=== PATIENT | female | born 1995 | race Caucasian/White ===

== ENCOUNTER 2019-03-29 12:18 | Inpatient (IN) | payer BC ==
[2019-03-29 16:35] VITALS: BMI 38.4
--- NOTE | 2019-03-29 17:24 | PN ---
"Teaching Attending Note Name of Resident: Santi Ram ATTENDING PHYSICIAN STATEMENT I saw and evaluated the patient. I reviewed the resident's note and discussed the case with the resident. I agree with the resident's findings and plan as documented. SUBJECTIVE: 24 y.o, female w/ opioid dependence x 4-6 mo , reports started meds from dentist then recreationally , started using heroin 2 mo ago , current daily use 3 bags via inhalation , latest use yesterday , prior xanax use with w/d seizures 1 year ago and 1 mo ago , denies recent use of benzodiazepines. PMhx : PCOS Surgeries: tonsillectomy (16 yo) Work: assistant athletic trainer SHX : father with alcohol use, Lives with family, legal - incarcerated in February for non-drug related crime, has court next month. OBJECTIVE: This report was requested by: Amanda Wolf | Reference #: [id number] Others' Prescriptions Patient Name: Collette Nunez Date: 1995 Address: [address] [place] [id number] Sex: Female Rx Written Rx Dispensed Drug Quantity Days Supply Prescriber Name 02/09/2019 02/10/2019 chlordiazepoxide 25 mg capsule 18 3 Selwyn Rodney Patient Name: October Evonne Date: 1995 Address: [address] [place] [id number] Sex: Female Rx Written Rx Dispensed Drug Quantity Days Supply Prescriber Name 01/18/2019 01/18/2019 alprazolam 0.5 mg tablet 10 10 Juanita Hogan J, MD 12/18/2018 12/18/2018 hydrocodone-acetaminophen 5-300 mg tablet 12 4 Shabbir Strange ASSESSMENT AND PLAN: Opioid dependence - Methadone taper and pt to consider outpt f/up for MAT . Benzodiazepine abuse - Valium taper"
--- NOTE | 2019-03-29 17:42 | HP ---
COWS - Scale Resting Pulse: 1= [place] 81-100 Sweatin=Flushed/Facial Moisture Restless Observation: 0= Sits Still Pupil Size: 2= Moderately Dilated Bone or Joint Aches: 1= Mild Discomfort Runny Nose/ Eye Tearin= Constantly Teary/Runny GI Upset > 30mins: 3= Vomiting/Diarrhea Tremor Observation: 2= Slight Tremor Visible Yawning Observation: 0= None Anxiety or Irritability: 0= None Goose Flesh Skin: 0=Smooth Skin (15 10 5) COWS Score: 15 CIWA Score - Admission Criteria OAS Guidelines: Admission for Medically Managed Detox: Requires at least one of the followin. CIWA greater than 12 2. Seizures within the past 24 hours 3. Delirium tremens within the past 24 hours 4. Hallucinations within the past 24 hours 5. Acute intervention needed for co occurring medical disorder 6. Acute intervention needed for co occurring psychiatric disorder 7. Severe withdrawal that cannot be handled at a lower level of care (continued vomiting, continued diarrhea, abnormal vital signs) requiring intravenous medication and/or fluids 8. Admission ROS [facility] Chief Complaint: vicodin detox Allergies/Adverse Reactions: Allergies Allergy/AdvReac Type Severity Reaction Status Date / Time No Known Allergies Allergy Verified 03/29/19 16:24 History of Present Illness: 24 year old female with a history of PCOS presents for detox from opiates. Uses vicodin for 6 months since a dental operation (4-5 pills per day). Also uses heroin 3 bag per day (snorts). Has had withdrawal seizures from stopping xanax ( 1 year ago), and then again 1 month ago due to weaning off of xanax, vicodin and heroin. Vicodin: 4-5 pills per day, last used yesterday since 6 months ago Heroin: started 3 months ago, last used yesterday, 3 bags per day. Snorts, never injected Xanax: does not currently use, but has her heroin cut with unknown substances Allergies: none Surgeries: tonsillectomy (16yo) Work: dog breeder Family History of Substance Use: father with alcohol use Lives with family - Ebola screening Have you traveled outside of the country in the last 21 days: No Have you had contact with anyone from an Ebola affected area: No - Review of Systems Constitutional: No Symptoms Reported, Diaphoresis, Loss of Appetite, Unintentional Wgt. Loss EENT: reports: Nose Congestion Respiratory: reports: No Symptoms reported Cardiac: reports: Lightheadedness, Palpitations GI: reports: Nausea, Vomiting : reports: No Symptoms Reported Musculoskeletal: reports: No Symptoms Reported Integumentary: reports: No Symptoms Reported Neuro: reports: Headache, Tingling Endocrine: reports: No Symptoms Reported Hematology: reports: No Symptoms Reported Psychiatric: reports: Judgement Intact, Mood/Affect Appropiate, Orientated x3, Anxious Patient History - Smoking Cessation Smoking history: Current some day smoker Have you smoked in the past 12 months: Yes Initiated information on smoking cessation: Yes 'Breaking Loose' booklet given: 03/29/19 - Substances abused Oxycontin Substance route: Oral Frequency: Daily Amount used: 5 or 6 pills Age of first use: 24 Date of last use: 03/29/19 Other Other (specify): Vicodan Substance route: Oral Frequency: 1-3 times last 30 days Amount used: ' not sure' Age of first use: 24 Date of last use: 03/18/19 Heroin Substance route: Inhalation Frequency: 3-6 times per week Amount used: 20 dollars Age of first use: 24 Date of last use: 03/28/19 Admission Physical Exam BHS - Vital Signs Vital Signs: Vital Signs - 24 hr 03/29/19 16:26 Temperature 97.7 F Pulse Rate 82 Respiratory 16 Rate Blood Pressure 156/88 - Physical General Appearance: Yes: No Apparent Distress, Nourished, Appropriately Dressed HEENTM: Yes: EOMI, Normal ENT Inspection, Normocephalic, Normal Voice, STEPHANI, Pharynx Normal, Tm's normal Respiratory: Yes: Chest Non-Tender, Lungs Clear, Normal Breath Sounds, No Respiratory Distress, No Accessory Muscle Use Neck: Yes: No masses,lesions,Nodules, Trachea in good position Breast: Yes: Within Normal Limits, Axillae without masses Cardiology: Yes: Regular Rhythm, Regular Rate Abdominal: Yes: Normal Bowel Sounds, Non Tender, Flat, Soft Genitourinary: Yes: Within Normal Limits Back: Yes: Within Normal Limits, Normal Inspection Musculoskeletal: Yes: full range of Motion Extremities: Yes: Normal Capillary Refill, Normal Inspection, Normal Range of Motion, Non-Tender Neurological: Yes: terminal press operator II-XII NML intact, Fully Oriented, Alert, Motor Strength 5/5, Normal Mood/Affect Integumentary: Yes: Normal Color, Dry, Warm - Diagnostic (1) Opioid dependence with withdrawal Current Visit: Yes Status: Acute (2) Heroin abuse Current Visit: Yes Status: Acute Cleared for Admission [facility] - Detox or Rehab [facility] Level of Care: Medically Managed Breathalyzer - Breathalyzer Breathalyzer: 0 Urine Drug Screen - Test Device Lot number: [id number] Expiration date: 12/01/20 - Control Is test valid?: Yes - Results Drug screen NEGATIVE: No Urine drug screen results: THC-Marijuana, FEN-Fentanyl, MOP-Opiates, OXY- Oxycodone, BZO-Benzodiazepines Inpatient Rehab Admission - Rehab Decision to Admit Inpatient rehab admission?: No
[2019-03-29] MEDS ORDERED: cloNIDine HCL 0.1 MG TABLET PO PRN (17:44)
[2019-03-29] MEDS ORDERED: BISMUTH SUBSALICYLATE 524 MG/30 ML UD PO PRN (17:44)
[2019-03-29] MEDS ORDERED: MAGNESIUM HYDROX 2400MG/30ML ORAL SUSPENSION 30 ML CUP PO PRN (17:44)
[2019-03-29] MEDS ORDERED: IBUPROFEN 400 MG TABLET (FP) PO PRN (17:44)
[2019-03-29] MEDS ORDERED: MAGNESIUM CITRATE 300 ML BOTTLE PO PRN (17:44)
[2019-03-29] MEDS ORDERED: ACETAMINOPHEN 325 MG TABLET (FP) PO PRN ×2 (17:44)
[2019-03-29] MEDS ORDERED: MENTHOL/PHENOL 1 EACH UD MM PRN (17:44)
[2019-03-29] MEDS ORDERED: MAG HYDROX/AL HYDROX/SIMETH 30 ML UNIT-DOSE CUP PO PRN (17:44)
[2019-03-29] MEDS ORDERED: METHADONE HCL 5 MG TABLET (FOR DETOX USE ONLY) PO ONE (18:00)
[2019-03-29] MEDS ORDERED: diazePAM 5 MG TABLET PO PRN (18:47)
[2019-03-29] MEDS: hydrOXYzine PAMOATE 25 MG CAPSULE (FP) PO PRN (18:52)
[2019-03-29] MEDS: diazePAM 5 MG TABLET PO SCH (22:25)
[2019-03-29] MEDS: THIAMINE HCL 100 MG TABLET (FP) PO SCH (22:25)
[2019-03-29] MEDS: MELATONIN 5 MG TABLETS PO PRN (22:25)
[2019-03-30] MEDS: diazePAM 5 MG TABLET PO SCH ×3 (05:42→22:10)
[2019-03-30 09:38] LABS: HEMATOCRIT 41.2 % (32.4-45.2); HEMOGLOBIN 14.2 GM/dL (10.7-15.3); MCH 32.4 pg (25.7-33.7); MCHC 34.5 g/dl (32.0-36.0); MEAN CELL VOLUME 93.7 fl (80-96); MEAN PLT VOLUME 8.1 fl (7.5-11.1); PLATELET COUNT 271 K/MM3 (134-434); WHITE BLOOD COUNT 6.5 K/mm3 (4.0-10.0)
[2019-03-30 09:43] LABS: ALBUMIN 3.7 g/dl (3.4-5.0); BILIRUBIN,TOTAL 1.4 mg/dL (0.2-1); BLOOD UREA NITROGEN 10.5 mg/dL (7-18); CALCIUM 9.4 mg/dL (8.5-10.1); CREATININE 0.7 mg/dL (0.55-1.3); TOT PROT 6.8 g/dl (6.4-8.2)
[2019-03-30] MEDS ORDERED: METHADONE HCL 10 MG TABLET (FOR DETOX USE ONLY) PO ONE (10:00)
[2019-03-30] MEDS: PRENATAL VITAMINS W/ FOLIC ACID TABLET (FP) PO SCH (10:20)
[2019-03-30] MEDS: METHOCARBAMOL 500 MG TABLET PO PRN (13:24)
[2019-03-30] MEDS ORDERED: cloNIDine HCL 0.1 MG TABLET PO ONE (14:37)
--- NOTE | 2019-03-30 17:34 | PN ---
BHS COWS - Scale Resting Pulse: 2= [place] 101-120 Sweatin= Chills/Flushing Restless Observation: 1= Difficult to Sit Still Pupil Size: 0= Normal to Room Light Bone or Joint Aches: 0= None Runny Nose/ Eye Tearin= None GI Upset > 30mins: 0= None Tremor Observation of Outstretched Hands: 2= Slight Tremor Visible Yawning Observation: 1= 1-2x During Session Anxiety or Irritability: 2=Irritable/Anxious Goose Flesh Skin: 0=Smooth Skin COWS Score: 9 BHS Progress Note (SOAP) Subjective: Anxious, Interrupted Sleep, Sweating, Tremors, Fatigue, Poor Appetite. Objective: PATIENT A & O X 3, OBSERVED AMBULATING ON DETOX UNIT UNASSISTED. IN NO ACUTE DISTRESS. 03/30/19 17:33 Vital Signs Temperature 96.6 F L 03/30/19 13:27 Pulse Rate 102 H 03/30/19 13:27 Respiratory Rate 20 03/30/19 13:27 Blood Pressure 138/86 03/30/19 13:27 O2 Sat by Pulse Oximetry (%) Laboratory Tests 03/29/19 03/30/19 03/30/19 17:19 07:30 07:30 WBC 6.5 RBC 4.40 Hgb 14.2 Hct 41.2 MCV 93.7 MCH 32.4 MCHC 34.5 RDW 12.0 Plt Count 271 MPV 8.1 Sodium 138 Potassium 4.0 Chloride 103 Carbon Dioxide 28 Anion Gap 7 L BUN 10.5 Creatinine 0.7 Est GFR (CKD-EPI)AfAm 140.55 Est GFR (CKD-EPI)NonAf 121.27 Random Glucose 92 Calcium 9.4 Total Bilirubin 1.4 H AST 13 L ALT 28 Alkaline Phosphatase 49 Total Protein 6.8 Albumin 3.7 POC Urine HCG, Qual Negative RPR Titer 03/30/19 07:30 WBC RBC Hgb Hct MCV MCH MCHC RDW Plt Count MPV Sodium Potassium Chloride Carbon Dioxide Anion Gap BUN Creatinine Est GFR (CKD-EPI)AfAm Est GFR (CKD-EPI)NonAf Random Glucose Calcium Total Bilirubin AST ALT Alkaline Phosphatase Total Protein Albumin POC Urine HCG, Qual RPR Titer Nonreactive LABS NOTED. Assessment: 03/30/19 17:35 WITHDRAWAL SYMPTOMS. HYPERBILIRUBINEMIA. Plan: CONTINUE DETOX. INCREASE DAILY PO WATER INTAKE. PRN MELATONIN PO FOR INSOMNIA. CLONIDINE, 0.1 MG PO X 1 FOR WITHDRAWAL SYMPTOMS.
[2019-03-30] MEDS: hydrOXYzine PAMOATE 25 MG CAPSULE (FP) PO PRN (22:10)
[2019-03-30] MEDS: THIAMINE HCL 100 MG TABLET (FP) PO SCH (22:10)
[2019-03-30] MEDS: MELATONIN 5 MG TABLETS PO PRN (22:11)
[2019-03-31] MEDS ORDERED: diazePAM 5 MG TABLET PO ONE (06:00)
[2019-03-31] MEDS ORDERED: METHADONE HCL 5 MG TABLET (FOR DETOX USE ONLY) PO ONE (10:00)
[2019-03-31] MEDS: PRENATAL VITAMINS W/ FOLIC ACID TABLET (FP) PO SCH (10:11)
[2019-03-31] MEDS: diazePAM 5 MG TABLET PO SCH ×2 (10:12→21:44)
--- NOTE | 2019-03-31 18:03 | PN ---
BHS COWS - Scale Resting Pulse: 0= PA 80 or Below Sweatin=Flushed/Facial Moisture Restless Observation: 1= Difficult to Sit Still Pupil Size: 0= Normal to Room Light Bone or Joint Aches: 0= None Runny Nose/ Eye Tearin= None GI Upset > 30mins: 0= None Tremor Observation of Outstretched Hands: 0= None Yawning Observation: 1= 1-2x During Session Anxiety or Irritability: 2=Irritable/Anxious Goose Flesh Skin: 0=Smooth Skin COWS Score: 6 BHS Progress Note (SOAP) Subjective: Anxious, Sweating. Patient reports That Current Withdrawal / Detox Symptoms have Subsided considerably in severity since time of admission to Detox Unit. Objective: PATIENT A & O X 3, OBSERVED AMBULATING ON DETOX UNIT UNASSISTED. IN NO ACUTE DISTRESS. 03/31/19 18:01 Vital Signs Temperature 97.1 F L 03/31/19 17:40 Pulse Rate 74 03/31/19 17:40 Respiratory Rate 18 03/31/19 17:40 Blood Pressure 137/76 03/31/19 17:40 O2 Sat by Pulse Oximetry (%) Laboratory Tests 03/29/19 03/30/19 03/30/19 17:19 07:30 07:30 WBC 6.5 RBC 4.40 Hgb 14.2 Hct 41.2 MCV 93.7 MCH 32.4 MCHC 34.5 RDW 12.0 Plt Count 271 MPV 8.1 Sodium 138 Potassium 4.0 Chloride 103 Carbon Dioxide 28 Anion Gap 7 L BUN 10.5 Creatinine 0.7 Est GFR (CKD-EPI)AfAm 140.55 Est GFR (CKD-EPI)NonAf 121.27 Random Glucose 92 Calcium 9.4 Total Bilirubin 1.4 H AST 13 L ALT 28 Alkaline Phosphatase 49 Total Protein 6.8 Albumin 3.7 POC Urine HCG, Qual Negative RPR Titer 03/30/19 07:30 WBC RBC Hgb Hct MCV MCH MCHC RDW Plt Count MPV Sodium Potassium Chloride Carbon Dioxide Anion Gap BUN Creatinine Est GFR (CKD-EPI)AfAm Est GFR (CKD-EPI)NonAf Random Glucose Calcium Total Bilirubin AST ALT Alkaline Phosphatase Total Protein Albumin POC Urine HCG, Qual RPR Titer Nonreactive labs noted. Assessment: 03/31/19 18:02 WITHDRAWAL SYMPTOMS. HYPERBILIRUBINEMIA. Plan: CONTINUE DETOX. PATIENT SCHEDULED FOR D/C FROM DETOX UNIT TOMORROW.
[2019-03-31] MEDS: THIAMINE HCL 100 MG TABLET (FP) PO SCH (21:44)
[2019-03-31] MEDS: MELATONIN 5 MG TABLETS PO PRN (21:44)
[2019-04-01] MEDS: METHOCARBAMOL 500 MG TABLET PO PRN (02:14)
[2019-04-01] MEDS: hydrOXYzine PAMOATE 25 MG CAPSULE (FP) PO PRN (02:14)
[2019-04-01] MEDS ORDERED: diazePAM 5 MG TABLET PO ONE (06:00)
[2019-04-01 06:25] VITALS: BP 142/85; PULSE 81; TEMP 97.7
--- NOTE | 2019-04-01 13:55 | DS ---
[facility] Detox Discharge Summary Admission Date: 03/29/19 Discharge Date: 04/01/19 - History Present History: Opioid Dependence Additional Comments: 24 years old female admitted on 03/29/19 for opiate withdrawal sx management discharged off the detox unit around 7 am today I have not assessed nor evaluated the patient before discharged today - Physical Exam Results Vital Signs: Vital Signs Temperature 97.7 F 04/01/19 06:25 Pulse Rate 81 04/01/19 06:25 Respiratory Rate 18 04/01/19 06:25 Blood Pressure 142/85 04/01/19 06:25 O2 Sat by Pulse Oximetry (%) Pertinent Admission Physical Exam Findings: opiate withdrawal sx Laboratory Last Values WBC 6.5 K/mm3 (4.0-10.0) 03/30/19 07:30 RBC 4.40 M/mm3 (3.60-5.2) 03/30/19 07:30 Hgb 14.2 GM/dL (10.7-15.3) 03/30/19 07:30 Hct 41.2 % (32.4-45.2) 03/30/19 07:30 MCV 93.7 fl (80-96) 03/30/19 07:30 MCH 32.4 pg (25.7-33.7) 03/30/19 07:30 MCHC 34.5 g/dl (32.0-36.0) 03/30/19 07:30 RDW 12.0 % (11.6-15.6) 03/30/19 07:30 Plt Count 271 K/MM3 (134-434) 03/30/19 07:30 MPV 8.1 fl (7.5-11.1) 03/30/19 07:30 Sodium 138 mmol/L (136-145) 03/30/19 07:30 Potassium 4.0 mmol/L (3.5-5.1) 03/30/19 07:30 Chloride 103 mmol/L (98-107) 03/30/19 07:30 Carbon Dioxide 28 mmol/L (21-32) 03/30/19 07:30 Anion Gap 7 MMOL/L (8-16) L 03/30/19 07:30 BUN 10.5 mg/dL (7-18) 03/30/19 07:30 Creatinine 0.7 mg/dL (0.55-1.3) 03/30/19 07:30 Est GFR (CKD-EPI)AfAm 140.55 03/30/19 07:30 Est GFR (CKD-EPI)NonAf 121.27 03/30/19 07:30 Random Glucose 92 mg/dL (74-106) 03/30/19 07:30 Calcium 9.4 mg/dL (8.5-10.1) 03/30/19 07:30 Total Bilirubin 1.4 mg/dL (0.2-1) H 03/30/19 07:30 AST 13 U/L (15-37) L 03/30/19 07:30 ALT 28 U/L (13-61) 03/30/19 07:30 Alkaline Phosphatase 49 U/L (45-117) 03/30/19 07:30 Total Protein 6.8 g/dl (6.4-8.2) 03/30/19 07:30 Albumin 3.7 g/dl (3.4-5.0) 03/30/19 07:30 POC Urine HCG, Qual Negative 03/29/19 17:19 RPR Titer Nonreactive (NONREACTIVE) 03/30/19 07:30 lab noted - Treatment Hospital Course: Detox Protocol Followed, Detoxed Safely, Responded well, Discharged Condition Good (nursing report), Rehab Referral Accepted Patient has Accepted a Rehab Referral to: [facility] - Medication Discharge Medications: Ambulatory Orders Medroxyprogesterone Acetate 10 mg PO DAILY 03/29/19 - Diagnosis (1) Opioid dependence with withdrawal Status: Acute - AMA Did Patient Leave Against Medical Advice: No
== END 2019-04-01 06:48 | disposition home or self-care (01) | DRG 897 ==
LOC: YASAS 12:18 → Y3N 17:42
PROVIDERS: ADMIT Surgery; ATTEND Surgery
PROC: HZ2ZZZZ Detoxification Services for Substance Abuse Treatment (ICD-10-PCS; principal; 2019-03-29)
DX: F11.23 Opioid dependence with withdrawal (principal); F17.210 Nicotine dependence, cigarettes, uncomplicated; E80.6 Other disorders of bilirubin metabolism
CPT/HCPCS: 36415; 80053; 81025; 85027; 86593; J0735

== ENCOUNTER 2019-09-08 10:11 | Inpatient (IN) | payer BC ==
--- NOTE | 2019-09-08 10:37 | BHS.RME ---
Substance Use & Tx History - Substance Use History Opiates (Heroin) Substance amount: 20 bags Frequency of use: Daily Substance route: Inhalation (ex: sniffing or snorting) Date of Last Use: 09/07/19 Benzodiazepines Substance amount: three two mg alprazolam Frequency of use: Daily Substance route: Oral Date of Last Use: 09/06/19 - Last Treatment Date of last treatment: 08/11/19 Where was last treatment: Detox ([facility] [place] - states she le ft after 2 days as did not like it there) Physical/Psych/Mental Status - Behavior Eye Contact: Normal - Cooperativeness Cooperativeness: Cooperative - Thinking Thought Processes: Logical Thought content: Future oriented - Physical Health Problems Is patient presently having any pain?: No Does patient presently have any injuries (include location): Yes (right outer thigh superficial scratches (self inflicted during black out)) Does patient currently have a fever: No Is patient : No COWS - Scale Resting Pulse: 1= [place] 81-100 Sweatin= Chills/Flushing Restless Observation: 1= Difficult to Sit Still Pupil Size: 0= Normal to Room Light Bone or Joint Aches: 1= Mild Discomfort Runny Nose/ Eye Tearin= Nasal Congestion GI Upset > 30mins: 2= Nausea/Diarrhea Tremor Observation: 2= Slight Tremor Visible Yawning Observation: 1= 1-2x During Session Anxiety or Irritability: 1=Feels Anxious/Irritable Goose Flesh Skin: 0=Smooth Skin COWS Score: 11 CIWA Nausea/Vomitin Muscle Tremors: 4-Moderate,w/Arms Extend Anxiety: 3 Agitation: 2 Paroxysmal Sweats: 1-Minimal Palms Moist Orientation: 0-Oriented Tacttile Disturbances: 0-None Auditory Disturbances: 0-None Visual Disturbances: 0-None Headache: 2-Mild CIWA-Ar Total Score: 14
[2019-09-08 11:12] VITALS: BMI 40.7
--- NOTE | 2019-09-08 11:35 | HP ---
COWS - Scale Resting Pulse: 1= [place] 81-100 Sweatin= Chills/Flushing Restless Observation: 1= Difficult to Sit Still Pupil Size: 0= Normal to Room Light Bone or Joint Aches: 1= Mild Discomfort Runny Nose/ Eye Tearin= Nasal Congestion GI Upset > 30mins: 2= Nausea/Diarrhea Tremor Observation: 2= Slight Tremor Visible Yawning Observation: 1= 1-2x During Session Anxiety or Irritability: 1=Feels Anxious/Irritable Goose Flesh Skin: 0=Smooth Skin COWS Score: 11 CIWA Score Nausea/Vomitin Muscle Tremors: 4-Moderate,w/Arms Extend Anxiety: 3 Agitation: 2 Paroxysmal Sweats: 1-Minimal Palms Moist Orientation: 0-Oriented Tacttile Disturbances: 0-None Auditory Disturbances: 0-None Visual Disturbances: 0-None Headache: 2-Mild CIWA-Ar Total Score: 14 - Admission Criteria OASAS Guidelines: Admission for Medically Managed Detox: Requires at least one of the followin. CIWA greater than 12 2. Seizures within the past 24 hours 3. Delirium tremens within the past 24 hours 4. Hallucinations within the past 24 hours 5. Acute intervention needed for co occurring medical disorder 6. Acute intervention needed for co occurring psychiatric disorder 7. Severe withdrawal that cannot be handled at a lower level of care (continued vomiting, continued diarrhea, abnormal vital signs) requiring intravenous medication and/or fluids 8. Patient presents the following: CIWA greater than 12 Admission Criteria Met: Admission criteria met Admitting History and Physical - Past Medical History ...: No - Smoking History Smoking history: Current some day smoker Have you smoked in the past 12 months: Yes Aproximately how many cigarettes per day: 10 Admission ROS [facility] Chief Complaint: "I dont wanna be stuck on drugs" Allergies/Adverse Reactions: Allergies Allergy/AdvReac Type Severity Reaction Status Date / Time No Known Allergies Allergy Verified 03/29/19 16:24 History of Present Illness: Patient is a 24 year old woman who presents for detox from benzo and opiate withdrawal. Patient reports 2 episodes of seizure activitity in 2018 r/t benzo withdrawal. She is admitted in no apparent distress. Exam Limitations: No Limitations - Ebola screening Have you traveled outside of the country in the last 21 days: No Have you had contact with anyone from an Ebola affected area: No Have you been sick,other than usual withdrawal symptoms: No Do you have a fever: No - Review of Systems Constitutional: Other (insomnia) EENT: reports: Other (wears contact lenses) Respiratory: reports: No Symptoms reported Cardiac: reports: No Symptoms Reported GI: reports: Nausea, Poor Appetite : reports: No Symptoms Reported Musculoskeletal: reports: Muscle Pain Integumentary: reports: No Symptoms Reported Neuro: reports: Headache, Seizure (r/t benzo withdrawal, had 2 events in 2018), Tingling Endocrine: reports: Unexplained Weight Loss Hematology: reports: No Symptoms Reported Psychiatric: reports: Anxious, Depressed, other (PTSD) Other Systems: Reviewed and Negative Patient History - Patient Medical History Hx Anemia: No Hx Asthma: No Hx Chronic Obstructive Pulmonary Disease (COPD): No Hx Cancer: No Hx Cardiac Disorders: No Hx Congestive Heart Failure: No Hx Hypertension: No Hx Hypercholesterolemia: No Hx Pacemaker: No HX Cerebrovascular Accident: No Hx Seizures: Yes (2018 r/t bzo w/drawal) Hx Dementia: No Hx Diabetes: No Hx Gastrointestinal Disorders: No Hx Liver Disease: No Hx Genitourinary Disorders: No Hx Sexually Transmitted Disorders: No Hx Renal Disease (ESRD): No Hx Thyroid Disease: No Hx Human Immunodeficiency Virus (HIV): No Hx Hepatitis C: No Hx Depression: Yes Hx Suicide Attempt: Yes (remote history) Hx Bipolar Disorder: No Hx Schizophrenia: No Other Medical History: PCOS - Patient Surgical History Past Surgical History: Yes Hx Neurologic Surgery: No Hx Cataract Extraction: No Hx Cardiac Surgery: No Hx Lung Surgery: No Hx Breast Surgery: No Hx Breast Biopsy: No Hx Abdominal Surgery: No Hx Appendectomy: No Hx Cholecystectomy: No Hx Genitourinary Surgery: No Hx Section: No Hx Orthopedic Surgery: No Other Surgical History: Tonsillectomy 2014 Anesthesia Reaction: No - PPD History Previous Implant?: Yes Documented Results: Negative w/o proof Implanted On Prior R Admission?: No PPD to be Administered?: Yes - Reproductive History Patient is a Female of Child Bearing Age (11 -55 yrs old): Yes Last Menstrual Period: 08/28/19 Patient : No - Smoking Cessation Smoking history: Current every day smoker Have you smoked in the past 12 months: Yes Aproximately how many cigarettes per day: 10 Hx Chewing Tobacco Use: No Initiated information on smoking cessation: Yes 'Breaking Loose' booklet given: 09/08/19 - Substances abused Heroin Substance route: Inhalation Frequency: Daily Amount used: 15-20 bags Age of first use: 24 Date of last use: 09/08/19 Admission Physical Exam [facility] - Vital Signs Vital Signs: Vital Signs - 24 hr 09/08/19 11:08 Temperature 97.3 F L Pulse Rate 80 Respiratory 18 Rate Blood Pressure 129/86 - Physical General Appearance: Yes: No Apparent Distress, Nourished, Other (hairy r/t PCOS) HEENTM: Yes: Hearing grossly Normal, Normocephalic, Normal Voice, STEPHANI, Pharynx Normal Respiratory: Yes: Chest Non-Tender, Lungs Clear, Normal Breath Sounds, No Respiratory Distress, No Accessory Muscle Use Neck: Yes: No masses,lesions,Nodules, Supple Breast: Yes: Breast Exam Deferred Cardiology: Yes: Regular Rhythm, Regular Rate, S1, S2 Abdominal: Yes: Normal Bowel Sounds, Non Tender, Protuberent, Other Genitourinary: Yes: Within Normal Limits Back: Yes: Normal Inspection Musculoskeletal: Yes: full range of Motion, Gait Steady Extremities: Yes: Normal Inspection, Normal Range of Motion, Non-Tender Neurological: Yes: holistic health practitioner II-XII NML intact, Fully Oriented, Alert, Motor Strength 5/5, Normal Mood/Affect, Normal Response Integumentary: Yes: Within Normal Limits Lymphatic: Yes: Within Normal Limits - Diagnostic (1) Benzodiazepine abuse Current Visit: Yes Status: Acute (2) Opioid dependence with withdrawal Current Visit: Yes Status: Acute (3) PCOS (polycystic ovarian syndrome) Current Visit: Yes Status: Acute Cleared for Admission [facility] - Detox or Rehab [facility] Level of Care: Medically Managed Detox Regimen/Protocol: Methadone/Valium Claeared for Rehab Admission: No Breathalyzer - Breathalyzer Breathalyzer: 0 Urine Drug Screen - Test Device Lot number: [id number] Expiration date: 06/02/21 - Control Is test valid?: Yes - Results Drug screen NEGATIVE: No Urine drug screen results: FEN-Fentanyl, MOP-Opiates, BZO-Benzodiazepines Inpatient Rehab Admission - Rehab Decision to Admit Inpatient rehab admission?: No
[2019-09-08] MEDS ORDERED: METHOCARBAMOL 500 MG TABLET PO PRN (11:49)
[2019-09-08] MEDS ORDERED: MAGNESIUM CITRATE 300 ML BOTTLE PO PRN (11:49)
[2019-09-08] MEDS ORDERED: NICOTINE POLACRILEX 2 MG GUM BUC PRN (11:49)
[2019-09-08] MEDS ORDERED: MAG HYDROX/AL HYDROX/SIMETH 30 ML UNIT-DOSE CUP PO PRN (11:49)
[2019-09-08] MEDS ORDERED: MAGNESIUM HYDROX 2400MG/30ML ORAL SUSPENSION 30 ML CUP PO PRN (11:49)
[2019-09-08] MEDS ORDERED: IBUPROFEN 400 MG TABLET (FP) PO PRN (11:49)
[2019-09-08] MEDS ORDERED: METHADONE HCL 10 MG TABLET (FOR DETOX USE ONLY) PO ONE (11:49)
[2019-09-08] MEDS ORDERED: BISMUTH SUBSALICYLATE 524 MG/30 ML UD PO PRN (11:49)
[2019-09-08] MEDS ORDERED: ONDANSETRON *ODT* 4 MG TABLET SL ONE (11:49)
[2019-09-08] MEDS ORDERED: ACETAMINOPHEN 325 MG TABLET (FP) PO PRN ×2 (11:49)
[2019-09-08] MEDS ORDERED: cloNIDine HCL 0.1 MG TABLET PO PRN (11:49)
[2019-09-08] MEDS ORDERED: NALOXONE HCL 0.4 MG/ML VIAL IM PRN (11:49)
[2019-09-08] MEDS ORDERED: diazePAM 5 MG TABLET PO PRN (11:49)
[2019-09-08] MEDS ORDERED: MENTHOL/PHENOL 1 EACH UD MM PRN (11:49)
[2019-09-08] MEDS: hydrOXYzine PAMOATE 25 MG CAPSULE (FP) PO SCH ×3 (13:01→22:20)
[2019-09-08] MEDS: diazePAM 5 MG TABLET PO SCH ×2 (13:01→22:20)
[2019-09-08] MEDS ORDERED: THIAMINE HCL 100 MG TABLET (FP) PO SCH (22:00)
[2019-09-08] MEDS ORDERED: MELATONIN 5 MG TABLETS PO SCH (22:00)
[2019-09-09] MEDS: diazePAM 5 MG TABLET PO SCH (05:26)
[2019-09-09] MEDS: hydrOXYzine PAMOATE 25 MG CAPSULE (FP) PO SCH ×2 (05:26→10:32)
--- NOTE | 2019-09-09 09:54 | EKG ---
Test Reason : Blood Pressure : / mmHG Vent. Rate : 060 BPM Atrial Rate : 060 BPM P-R Int : 148 ms QRS Dur : 084 ms QT Int : 428 ms P-R-T Axes : 018 034 026 degrees QTc Int : 428 ms NORMAL SINUS RHYTHM NORMAL ECG NO PREVIOUS ECGS AVAILABLE Confirmed by Marcelino Sal MD ([id number]) on 09/09/2019 9:53:39 AM Referred By: Confirmed By:Marcelino Sal MD
[2019-09-09] MEDS ORDERED: METHADONE HCL 5 MG TABLET (FOR DETOX USE ONLY) PO ONE (10:00)
[2019-09-09] MEDS ORDERED: NICOTINE 7 MG/24 HOURS TOPICAL PATCH TD SCH (10:00)
[2019-09-09] MEDS ORDERED: PRENATAL VITAMINS W/ FOLIC ACID TABLET (FP) PO SCH (10:00)
[2019-09-09 11:29] LABS: HEMATOCRIT 40.1 % (32.4-45.2); MCH 30.9 pg (25.7-33.7); MEAN CELL VOLUME 88.3 fl (80-96); PLATELET COUNT 253 K/MM3 (134-434); RBC 4.54 M/mm3 (3.60-5.2); RDW 12.7 % (11.6-15.6); WHITE BLOOD COUNT 6.5 K/mm3 (4.0-10.0)
[2019-09-09 11:36] VITALS: BP 131/75; PULSE 69; TEMP 96.6
[2019-09-09 11:49] LABS: ALBUMIN 3.5 g/dl (3.4-5.0); BILIRUBIN,TOTAL 0.4 mg/dL (0.2-1); BLOOD UREA NITROGEN 12.6 mg/dL (7-18); CALCIUM 8.9 mg/dL (8.5-10.1); CREATININE 0.8 mg/dL (0.55-1.3); TOT PROT 6.7 g/dl (6.4-8.2)
--- NOTE | 2019-09-09 12:35 | PN ---
[facility] Progress Note Note: during morning rounds pt was feeling restless, sweats, mild shakes, nasal congestion, teary eyes. Pt was encouraged to continue detox regimen as ordered. Pt in agreement. now pt is insisting on leaving stating she has "somewhere to go". pt was encouraged to stay and complete her detox to prevent seizure, OD, DT, and or loss, pt chose to sign our AMA.
--- NOTE | 2019-09-09 12:37 | DS ---
[facility] Detox Discharge Summary Admission Date: 09/08/19 - History Present History: Opioid Dependence - Physical Exam Results Vital Signs: Vital Signs Temperature 96.6 F L 09/09/19 08:56 Pulse Rate 69 09/09/19 08:56 Respiratory Rate 20 09/09/19 08:56 Blood Pressure 131/75 09/09/19 08:56 O2 Sat by Pulse Oximetry (%) Pertinent Admission Physical Exam Findings: Vital Signs Temperature 96.6 F L 09/09/19 08:56 Pulse Rate 69 09/09/19 08:56 Respiratory Rate 20 09/09/19 08:56 Blood Pressure 131/75 09/09/19 08:56 O2 Sat by Pulse Oximetry (%) Laboratory Tests 09/09/19 09/09/19 09/09/19 07:50 07:50 07:50 WBC 6.5 RBC 4.54 Hgb 14.0 Hct 40.1 MCV 88.3 MCH 30.9 MCHC 35.0 RDW 12.7 Plt Count 253 MPV 8.0 Sodium 139 Potassium 4.0 Chloride 106 Carbon Dioxide 29 Anion Gap 5 L BUN 12.6 Creatinine 0.8 Est GFR (CKD-EPI)AfAm 119.60 Est GFR (CKD-EPI)NonAf 103.19 Random Glucose 85 Calcium 8.9 Total Bilirubin 0.4 AST 11 L ALT 19 Alkaline Phosphatase 53 Total Protein 6.7 Albumin 3.5 RPR Titer Nonreactive aaox3 ambulating no acute distress - Treatment Hospital Course: Rehab Referral Accepted - Medication Discharge Medications: Ambulatory Orders NK [No Known Home Medication] 09/08/19 - Diagnosis (1) Benzodiazepine abuse Current Visit: Yes Status: Chronic (2) Opioid dependence with withdrawal Current Visit: Yes Status: Chronic (3) PCOS (polycystic ovarian syndrome) Current Visit: Yes Status: Acute - AMA Did Patient Leave Against Medical Advice: Yes
[2019-09-10] MEDS ORDERED: diazePAM 5 MG TABLET PO SCH (06:00)
[2019-09-10] MEDS ORDERED: METHADONE HCL 10 MG TABLET (FOR DETOX USE ONLY) PO ONE (10:00)
[2019-09-11] MEDS ORDERED: diazePAM 5 MG TABLET PO ONE (06:00)
[2019-09-11] MEDS ORDERED: METHADONE HCL 5 MG TABLET (FOR DETOX USE ONLY) PO ONE (06:00)
== END 2019-09-09 13:04 | disposition left against medical advice (07) | DRG 894 ==
LOC: YASAS 10:11 → Y6N 10:56
PROVIDERS: ADMIT Allergy & Immunology; ATTEND Allergy & Immunology
PROC: HZ2ZZZZ Detoxification Services for Substance Abuse Treatment (ICD-10-PCS; principal; 2019-09-08)
DX: F11.23 Opioid dependence with withdrawal (principal); F13.230 Sedative, hypnotic or anxiolytic dependence with withdrawal, uncomplicated; F17.210 Nicotine dependence, cigarettes, uncomplicated; F32.9 Major depressive disorder, single episode, unspecified; E28.2 Polycystic ovarian syndrome; Z86.69 Personal history of other diseases of the nervous system and sense organs; Z91.5 Personal history of self-harm
CPT/HCPCS: 36415; 80053; 81025; 85027; 86593; 93005; 93010